=== PATIENT | female | born 1955 | race Caucasian/White ===

== ENCOUNTER 2016-05-14 19:19 | Emergency (ER) | payer OTHER ==
[2016-05-14] MEDS ORDERED: STERILE WATER INJ. INJ ONE (19:30)
[2016-05-14] MEDS ORDERED: GEODON IM ONE (19:30)
--- NOTE | 2016-05-14 20:01 | PROVIDER DOCUMENTATION ---
HPI-General Adult - General Chief Complaint: Altered Mental Status Stated Complaint: combative, etoh Time Seen by Provider: 05/14/16 19:26 Source: patient, EMS Allergies/Adverse Reactions: Patient Allergies Allergy/AdvReac Type Severity Reaction Status Date / Time No Known Allergies Allergy Verified 05/14/16 20:14 Home Medications: Home Medication List Medication Instructions Recorded Confirmed Last Taken Type Clonazepam 1 mg PO BID 05/14/16 05/14/16 Unknown History Hydrocodone/Acetaminophen [[place] 1 each PO BID 05/14/16 05/14/16 Unknown History 5-325 Tablet] Methocarbamol 500 mg PO BID 05/14/16 05/14/16 Unknown History Venlafaxine [Effexor] 225 mg PO DAILY 05/14/16 05/14/16 Unknown History Zolpidem Tartrate [Ambien] 10 mg PO HS 05/14/16 05/14/16 Unknown History - History of Present Illness -Gen Adult Nature of Presenting Problems: PT IS A 61YOF PRESENTING TO THE ED C/O AMS. EMS REPORTS PT IS UNDER THE INFLUENCE OF ETOH AND POSSIBLE INGESTION OF TRAZODONE, AMBIEN, AND KL[place]IN. PT IS EXTREMELY AGITATED AND UNCOOPERATIVE. PT STATES SHE DRANK A WHOLE BOTTLE OF WHISKEY BUT DENIES ANY OTHER MEDICATIONS. ACCORDING TO FAMILY THE PT WAS BEATING HER HEAD UP AGAINST AND CRYING SHE WANTED TO . NO OTHER COMPLAINTS AT THIS TIME. Location of Pain/Injury: reports: none Pain Radiation: reports: no radiation Quality of Pain: reports: none Severity: reports: moderate Onset/Duration: reports: just prior to arrival Timing: reports: still present Context/Activities at Onset: reports: light activity Modifying Factors: improves with: nothing Associated Symptoms: reports: anxiety, trouble walking. denies: back/neck pain , chest pain, syncope Similar Symptoms Previously?: No Recently seen or treated by another doctor?: No Review of Systems - Adult - REVIEW OF SYSTEMS - ADULT Constitutional: reports: no symptoms reported Eyes: reports: no symptoms reported Ears, Nose, Mouth & Throat: reports: no symptoms reported Cardiovascular: reports: no symptoms reported Respiratory: reports: no symptoms reported Gastrointestinal: reports: no symptoms reported Genitourinary: reports: no symptoms reported Musculoskeletal: reports: no symptoms reported Integumentary: reports: no symptoms reported Neurological: reports: no symptoms reported Psychiatric: reports: see HPI, anxiety, anti-depressant use, alcohol/drug dependence, depression, emotional problems, panic attacks, suicidal thoughts Endocrine: reports: no symptoms reported Hematologic/Lymphatic: reports: no symptoms reported Allergic/Immunologic: reports: no symptoms reported All Other Systems: Reviewed and Negative Past History - Adult - PAST MEDICAL HISTORY-ADULT Review of Records: reports: Old Records Reviewed, Nursing Assessment Review, Medications Reviewed, Social history reviewed & non-contributory. Major Childhood Illnesses: reports: denies history Cardiovascular: reports: denies history Respiratory: reports: denies history Gastrointestinal: reports: denies history Obstetrical/Gynecological: reports: denies history Genitourinary: reports: denies history Musculoskeletal: reports: denies history Neurological: reports: denies history Endocrine/Immune: reports: denies history Other Conditions: reports: denies history - IMMUNIZATION STATUS Childhood Immunizations: See Nurse Assessment Flu Vaccine: See Nurse Assessment - FAMILY HISTORY Family History: reviewed, not pertinent - SOCIAL HISTORY Smoking: cigarettes Provider spent 3-5 mins advising pt. on dangers of tobacco.: Discussed manners to quit use, and f/u contacts for add'l counseling. Substance Use: none/never, alcohol, benzodiazepines Alcohol Use Frequency: every day Number of drinks per typical drinking period:: 5-10 drinks Living Situation: family Physical Exam-General - PHYSICAL EXAM-ADULT Initial Vital Signs Reviewed: Yes - CONSTITUTIONAL General Appearance: moderate distress, anxious, combative. negative: appears well, alert, no apparent distress - EYES Eyes: pink conjunctivae, other (OLD INJURY TO LEFT EYE, NO FUNCTION , RIGHT EYE NON REACTIVE AT 4MM IN DIAMETER). negative: PERRL/EOMI - HEAD, EARS, NOSE, MOUTH & THROAT HENMT: normocephalic/atraumatic, moist mucous membranes, normal ENT inspection, TMs normal, pharynx normal - NECK Neck: non-tender, full range of motion, supple, normal inspection - RESPIRATORY Respiratory: chest non-tender, lungs clear, normal breath sounds, no pleuratic chest pain, no respiratory distress, no accessory muscle use - CARDIOVASCULAR Cardiovascular: normal peripheral pulses, regular rate, rhythm, no edema, no gallop, no JVD, no murmur - GASTROINTESTINAL (ABDOMEN) Abdominal Exam: normal bowel sounds, non tender, soft, no organomegaly, no pulsatile mass - LYMPHATIC Lymphatic: no adenopathy - MUSCULOSKELETAL Back Exam: normal inspection, no CVA tenderness, no vertebral tenderness Extremity: normal range of motion, non-tender, no pedal edema, no calf tenderness, normal capillary refill. negative: normal gait, normal inspection - SKIN Integumentary: normal color, normal turgor, warm/dry - NEUROLOGIC Neurologic: no motor/sensory deficits, abnormal buckle attacher II-XII. negative: buckle attacher II- XII nml as tested, grossly normal - PSYCHIATRIC Psych/Mental Status: oriented x 3, anxious, paranoid, tearful, other (SI). negative: normal mood/affect, normal thought content, normal thought process Progress - PLAN OF CARE/RESULTS Progress/Plan/Lab Results: Laboratory Tests 05/14/16 05/14/16 05/14/16 19:42 19:42 19:42 WBC 7.45 RBC 4.98 Hgb 15.2 Hct 45.4 MCV 91.2 MCH 30.5 MCHC 33.5 RDW Std Deviation 15.2 H Plt Count 297 MPV 9.6 Immature Gran % (Auto) 0.3 Neut % (Auto) 56.2 Lymph % (Auto) 35.7 [place] % (Auto) 6.0 Eos % (Auto) 1.5 Baso % (Auto) 0.3 Immature Gran # (Auto) 0.02 Neut # (Auto) 4.19 Lymph # (Auto) 2.66 [place] # (Auto) 0.45 Eos # (Auto) 0.11 Baso # (Auto) 0.02 Sodium 147 H Potassium 3.8 Chloride 107 Carbon Dioxide 26 Anion Gap 14 BUN 10 Creatinine 0.7 Estimated GFR/1.73 m2 > 60 BUN/Creatinine Ratio 14 Glucose 86 Calculated Osmolality 291 Calcium 9.3 Total Bilirubin 0.21 AST 23 ALT 21 Alkaline Phosphatase 83 Total Protein 7.0 Albumin 4.3 Globulin 2.7 Albumin/Globulin Ratio 1.6 Urine Source Urine Color Urine Turbidity Urine pH Ur Specific [place] Urine Protein Ur Glucose (Stick) Ur Ketones (Stick) Urine Blood Urine Nitrite Urine Bilirubin Urobilinogen Dipstick Urine Leukocytes Urine WBC (Auto) Urine RBC (Auto) U Epithel Cells (Auto) Urine Bacteria (Auto) Urine Crystals Small Round Cells Urine Casts Urine Yeast-like Cells Salicylates < 3.00 L Urine Opiates Screen Ur Oxycodone Screen Ur Methadone, Qual Acetaminophen < 1.2 L Ur Barbiturates Screen Ur Phencyclidine Scrn Ur Amphetamines Screen U Benzodiazepines Scrn Urine Cocaine Screen U Cannabinoids Screen Plasma/Serum Ethyl Alc 260 H 05/14/16 05/14/16 21:33 21:33 WBC RBC Hgb Hct MCV MCH MCHC RDW Std Deviation Plt Count MPV Immature Gran % (Auto) Neut % (Auto) Lymph % (Auto) [place] % (Auto) Eos % (Auto) Baso % (Auto) Immature Gran # (Auto) Neut # (Auto) Lymph # (Auto) [place] # (Auto) Eos # (Auto) Baso # (Auto) Sodium Potassium Chloride Carbon Dioxide Anion Gap BUN Creatinine Estimated GFR/1.73 m2 BUN/Creatinine Ratio Glucose Calculated Osmolality Calcium Total Bilirubin AST ALT Alkaline Phosphatase Total Protein Albumin Globulin Albumin/Globulin Ratio Urine Source CLEAN CATCH Urine Color YELLOW Urine Turbidity HAZY Urine pH 5.5 Ur Specific [place] 1.003 Urine Protein NEGATIVE Ur Glucose (Stick) NEGATIVE Ur Ketones (Stick) NEGATIVE Urine Blood NEGATIVE Urine Nitrite NEGATIVE Urine Bilirubin NEGATIVE Urobilinogen Dipstick NORMAL Urine Leukocytes MODERATE A Urine WBC (Auto) <10 Urine RBC (Auto) <10 U Epithel Cells (Auto) <10 Urine Bacteria (Auto) 1+ Urine Crystals NONE SEEN Small Round Cells RENAL PRESENT Urine Casts NONE SEEN Urine Yeast-like Cells NONE SEEN Salicylates Urine Opiates Screen NONE DETECTED Ur Oxycodone Screen PRESUMPTIVE POSITIVE A Ur Methadone, Qual NONE DETECTED Acetaminophen Ur Barbiturates Screen NONE DETECTED Ur Phencyclidine Scrn NONE DETECTED Ur Amphetamines Screen NONE DETECTED U Benzodiazepines Scrn NONE DETECTED Urine Cocaine Screen NONE DETECTED U Cannabinoids Screen NONE DETECTED Plasma/Serum Ethyl Alc Orders Category Date Time Status Cardiac Monitoring DIRECTED Care 05/14/16 20:30 Active Finger Stick Blood Sugar (ED) DIRECTED Care 05/14/16 20:30 Active Saline Loc DIRECTED Care 05/14/16 20:30 Active ACETAMINOPHEN [TDM] Stat Lab 05/14/16 19:42 Completed ALCOHOL BLOOD Stat Lab 05/14/16 19:42 Completed CBC WITH ELECTRONIC DIFF [HEME] Stat Lab 05/14/16 19:42 Completed COMPREHENSIVE METABOLIC PANEL [CHEM] Stat Lab 05/14/16 19:42 Completed SALICYLATES [TDM] Stat Lab 05/14/16 19:42 Completed UA [UA NIMS W/REFLEX CULT] [URINALYSIS] Stat Lab 05/14/16 21:33 Completed URINE CULTURE [RM] Routine Lab 05/14/16 22:50 Received URINE DRUG SCREEN Stat Lab 05/14/16 21:33 Completed URINE MANUAL MICROSCOPIC [URINALYSIS] Stat Lab 05/14/16 21:33 Completed Mvi [M.v.i.-12] 10 ml Med 05/15/16 09:00 Active Folic Acid 1 mg Magnesium Sulfate 1 gm Thiamine 100 mg 0.9% Sodium Chloride Inj [Ns] 1,000 ml IV DAILY Water, Sterile Inj [Sterile Water Inj] Med 05/14/16 19:30 Discontinued 1.2 ml INJ NOW ONE Ziprasidone [Geodon] Med 05/14/16 19:30 Discontinued 10 mg IM NOW ONE Pulse Oximetry Stat Oth 05/14/16 20:30 Completed EKG [EKG] Stat Ther 05/14/16 20:30 Ordered Vital Signs - 24 hr 05/14/16 05/14/16 19:20 21:15 Pulse Rate 84 92 H Respiratory 15 12 Rate Blood Pressure 141/90 133/87 O2 Sat by Pulse 93 L 96 Oximetry - REASSESSMENT Reassessment #1 Time Reassessed: 22:17 (DR MELVIN AT BEDSIDE AND PT STILL ALTERED AND A&O X1 AT THIS TIME) Status: unchanged Departure - Departure Time of Disposition Order: 01:00 DIAGNOSIS: Alcohol intoxication Qualifiers: Complication of substance-induced condition: uncomplicated Qualified Code(s): F10.120 - Alcohol abuse with intoxication, uncomplicated Disposition: HOME 01 Certified Medical Emergency: Emergent Condition: Stable Additional Instructions: ED Follow Up Instructions: You have been treated by a care provider in the Emergency Department. These instructions are being provided to you so you can have an understanding of how to care for yourself upon discharge. Upon discharge from the Emergency Department, you are responsible for making arrangements for follow-up care by a physician of your choice. Take all prescribed medications as directed. Return to the Emergency Department immediately for any new or worsening symptoms. You may call the Physician Referral phone number at [phone] to obtain a list of Physicians who are taking new patients. Attestation - Scribe Verification/Attestation Scribe:: Kristina Yuan Acting as Scribe for:: Tomasz Melvin Scribe documention review:: This chart was documented by a scribe and accurately reflects the service the provider performed and the decisions made by the provider. Physician Attestation - Physician Attestation I, the provider, attest to the following statement:: Tomasz Melvin Physician documentation Attestation:: This documentation recorded by the scribe accurately reflects the service I personally performed and the decisions made by me.
[2016-05-14 20:43] LABS: MANUAL DIFF NEEDED? NO
[2016-05-14 20:55] LABS: BASO% 0.3 % (0.0-0.8); EOS# 0.11 X1000 (0.0-0.7); EOS% 1.5 % (0.0-10.0); HEMATOCRIT 45.4 % (37.0-47.0); HEMOGLOBIN 15.2 g/dL (12.0-16.0); IMM GRAN# 0.02 X1000 (0.0-0.04); IMM GRAN% 0.3 % (0.0-0.5); LYMPH# 2.66 X1000 (1.2-3.4); LYMPH% 35.7 % (20.5-51.1); MCH 30.5 PG (27-31); MCHC 33.5 g/dL (33-37); MCV 91.2 FL (81-99); MONO# 0.45 X1000 (0.11-0.59); MPV 9.6 FL (7.4-10.4); NEUT% 56.2 % (42.2-75.2); PLT 297 X1000 (130-400); RBC 4.98 XMIL (4.2-5.4)
[2016-05-14 21:16] LABS: ACETAMINOPHEN < 1.2 ug/mL (10-30); AGAP 14; ALBUMIN 4.3 g/dL (3.5-5.0); ALKALINE PHOSPHATASE 83 U/L (32-104); BUN 10 mg/dL (8-22); CALCIUM 9.3 mg/dL (8.8-10.2); CHLORIDE 107 mmol/L (98-107); COSMO 291; GOT 23 U/L (10-30); GPT 21 U/L (10-36); POTASSIUM 3.8 mmol/L (3.5-5.1); SODIUM 147 mmol/L (136-145); TCO2 26 mmol/L (25-35); TOTAL BILIRUBIN 0.21 mg/dL (0.20-1.00)
[2016-05-14 22:14] LABS: URINE SOURCE CLEAN CATCH
[2016-05-14 22:21] LABS: BILIRUBIN URINE NEGATIVE (NEGATIVE); BLOOD URINE NEGATIVE (NEGATIVE); COLOR YELLOW; GLUCOSE URINE NEGATIVE (NEGATIVE); NITRITE URINE NEGATIVE (NEGATIVE); PH URINE 5.5; PROTEIN URINE NEGATIVE (NEGATIVE); SP GRAVITY URINE 1.003; TURBIDITY URINE HAZY (CLEAR); URINE MICRO REVIEW NEEDED? YES; UROBILINOGEN URINE NORMAL (NORMAL)
[2016-05-14 22:31] LABS: UR AMPHETAMINES QUAL NONE DETECTED (NONE DETECT); UR BARBITUATES QUAL NONE DETECTED (NONE DETECT); UR BENZODIAZEPIN QUAL NONE DETECTED (NONE DETECT); UR CANNABINOIDS QUAL NONE DETECTED (NONE DETECT); UR COCAINE QUAL NONE DETECTED (NONE DETECT); UR METHADONE QUAL NONE DETECTED (NONE DETECT); UR OPIATES QUAL NONE DETECTED (NONE DETECT); UR OXYCODONE QUAL PRESUMPTIVE POSITIVE (NONE DETECT); UR PCP QUAL NONE DETECTED (NONE DETECT)
[2016-05-14 22:44] LABS: LEUKOCYTES URINE MODERATE (NEGATIVE)
[2016-05-14 22:49] LABS: UR EPITHELIAL CELLS <10 /HPF (<10); URINE BACTERIA 1+ /HPF; URINE CULTURE NEEDED? YES; URINE RBC <10 /HPF (<10); URINE WBC <10 /HPF (<10)
[2016-05-14 22:50] LABS: URINE CASTS NONE SEEN; URINE CRYSTALS NONE SEEN; URINE SMALL ROUND CELLS RENAL PRESENT
--- NOTE | 2016-05-14 23:30 | ED EKG INTERP ---
EKG Interpretation - EKG Time of EKG reading by physician:: 21:44 EKG Read and Signed by:: Tomasz Hylton EKG Interpretation (*Must complete 3 of following elements*): Abnormal Rate: 91 Rhythm: SR W/OCCASIONAL PVC QRS: other (BIATRIAL ENLARGEMENT) ST Wave: non-specific ST changes (AND T WAVE ABNORMALITY) Attestation - Scribe Verification/Attestation Scribe:: Kristina Yuan Acting as Scribe for:: Tomasz Hylton Scribe documention review:: This chart was documented by a scribe and accurately reflects the service the provider performed and the decisions made by the provider. Physician Attestation - Physician Attestation I, the provider, attest to the following statement:: Tomasz Hylton Physician documentation Attestation:: This documentation recorded by the scribe accurately reflects the service I personally performed and the decisions made by me.
[2016-05-15 00:52] VITALS: BP 151/85
--- NOTE | 2016-05-15 06:11 | EKG Report ---
Test Performed on : 05/14/2016 9:44:45 PM Test Reason : AMS Blood Pressure : / mmHG Vent. Rate : 091 BPM Atrial Rate : 091 BPM P-R Int : 174 ms QRS Dur : 082 ms QT Int : 370 ms P-R-T Axes : 066 089 068 degrees QTc Int : 455 ms Sinus rhythm. with occasional premature ventricular complexes. Biatrial enlargement Nonspecific ST and T wave abnormality Abnormal ECG No previous ECGs available Unconfirmed Result
[2016-05-15] MEDS ORDERED: M.V.I.-12 10 ML, FOLIC ACID 1 MG, MAGNESIUM SULFATE 1 GM, THIAMINE 100 MG in NS 1,000 ML IV SCH (09:00)
== END 2016-05-15 01:04 | disposition home or self-care (01) ==
LOC: EDBD → ED 19:19
DX: F10.120 Alcohol abuse with intoxication, uncomplicated (principal); R94.31 Abnormal electrocardiogram [ECG] [EKG]; R41.82 Altered mental status, unspecified; R45.1 Restlessness and agitation; R26.2 Difficulty in walking, not elsewhere classified; F17.210 Nicotine dependence, cigarettes, uncomplicated; Z79.899 Other long term (current) drug therapy; Z71.6 Tobacco abuse counseling
CPT/HCPCS: 80053; 81001; 85025; 87088; 93005; G0480; J3411; J3475; J3486; J7030; 80320; 80324; 80329; 80345; 80346; 80349; 80353; 80358; 80361; 80365; 83992